=== PATIENT | female | born 1960 | race Caucasian/White ===

== ENCOUNTER 2021-06-28 06:27 | Day surgery (SDC) | payer OTHER, SELFPAY ==
[2021-06-21 12:50] VITALS: BMI 36.4
--- NOTE | 2021-06-28 06:53 | HO.ANESPROP2 ---
[facility] Past Medical History Medical History (Updated 06/21/21 @ 12:43 by Blanka Gavin RN) Elevated cholesterol HTN (hypertension) Family History Family history of problems with anesthesia: No Surgical History Surgical History (Updated 06/21/21 @ 12:43 by Blanka Gavin RN) H/O colonoscopy History of endometrial ablation Hx of dilation and curettage History of Problems with Anesthesia: No Social History Social History Patient Tobacco Use Status: Never used Tobacco Advance Directives Information Provided: Yes (informational brochure mailed) Advance Directives on File: No Meds Allergies Allergy/AdvReac Type Severity Reaction Status Date / Time erythromycin base Allergy Intermediate RASH Verified 06/28/21 06:15 [ERYTHROMYCIN BASE] Home Medications Medication Instructions Recorded Confirmed Last Taken Type atorvastatin 10 mg tablet 10 mg PO BEDTIME 06/21/21 06/21/21 Unknown History cetirizine 10 mg tablet (Zyrtec) 10 mg PO DAILY PRN 06/21/21 06/21/21 Unknown History cholecalciferol (vitamin D3) 50 50 mcg PO DAILY 06/21/21 06/21/21 Unknown History mcg (2,000 unit) capsule (Vitamin D3) multivitamin 1 tab PO DAILY 06/21/21 06/21/21 Unknown History propranolol 60 mg tablet 60 mg PO BID 06/21/21 06/21/21 Unknown History Exam Exam Date and Time: June 28, 2021 0653 Height,Weight and Vital Signs: Height 5 ft 1.5 in Weight 88.904 kg Airway Mallampati Class: I TM Dist: >3cm Neck ROM: Full Heart: rrr Lungs: cta Assessment and Plan Assessment Anesthesia Assessment: Anesthesia Plan Discussed and Chart Reviewed Final Anesthetic Review Family History of Problems with Anesthesia: No History of Problems with Anesthesia: No NPO: Yes (Sip water with med) ASA Class: II Final Preanesthetic Review: No Changes in Pt Med Stat, Meds/Allgs Chart Reviewed and Consent Obtained/Reviewed Patient Risk: Intermediate Procedure Risk: Intermediate Anesthetic Plan Anesthetic Plan: MAC: Disposition: Standard PACU
[2021-06-28 06:58] VITALS: BP 140/68; PULSE 60; RESP 18; TEMP 36.6; O2SAT 99
[2021-06-28] MEDS: Lactated Ringers 1,000 ML 50 ML IVCONT (07:07)
[2021-06-28 08:31] VITALS: BP 105/59; PULSE 69; RESP 16; TEMP 36.5; O2SAT 98
[2021-06-28 08:33] VITALS: BP 105/78; PULSE 85; RESP 20; TEMP 37.2; O2SAT 98
--- NOTE | 2021-06-28 08:33 | PM.OP ---
Brief Operative Note Date of Service: 06/28/21 Pre-op diagnosis: Screening Post-op diagnosis: other (Rectal polyp) Procedure: Colonoscopy to the cecum and TI with cold snare polypectomy Surgeon: Zack Laird Anesthesia: MAC Was an Senior Hr Manager used for this Procedure?: No Estimated blood loss (mL): 3.0 Pathology: other (A. Rectal polyp) Condition: stable Disposition: PACU
[2021-06-28 08:45] VITALS: BP 112/66; PULSE 67; RESP 18; TEMP 36.2; O2SAT 98
[2021-06-28 09:01] VITALS: BP 112/66; PULSE 67; RESP 18; TEMP 36.2; O2SAT 98
--- NOTE | 2021-06-28 09:45 | OP_ITS ---
SURGEON: Zack Laird MD INDICATIONS: The patient presents for evaluation of colorectal cancer screening and family history of colon cancer. Full consent has been obtained from her for this, including risks of bleeding and perforation. PREOPERATIVE DIAGNOSIS: POSTOPERATIVE DIAGNOSIS: PROCEDURE PERFORMED: Colonoscopy to cecum and terminal ileum with cold snare polypectomy. ESTIMATED BLOOD LOSS: COMPLICATIONS: ANESTHESIA: Monitored anesthesia care. ASSISTANTS: SPECIMENS: PREOPERATIVE DIAGNOSES: Colorectal cancer screening and family history of colon cancer. POSTOPERATIVE DIAGNOSES: Colorectal cancer screening and family history of colon cancer, small colon polyp, mild diverticulosis, and small internal hemorrhoids. DESCRIPTION OF PROCEDURE: The patient was placed in the left lateral decubitus position. The digital rectal exam revealed no abnormalities. The Olympus video pediatric colonoscope was entered into the rectum and advanced to the cecum with assistance of abdominal wall pressure. Once in the cecum, I did identify normal-appearing cecal pouch with appendiceal orifice and a normal-appearing ileocecal valve. The terminal ileum was cannulated and appeared normal. The scope was withdrawn back in the colon. The entire cecum and ileocecal valve appeared normal. The scope was slowly withdrawn assessing all mucosal surfaces carefully. Preparation was excellent. In the proximal rectum, was a flat approximately 5 or 6 mm probable hyperplastic polyp, which was snared and removed with a cold snare. A small piece was recovered by suction. The polypectomy site appeared clean, without any sign of residual polyp nor significant bleeding. I did not visualize any other polyps, colitis, nor angiodysplasia. There was a mild amount of sigmoid diverticulosis. In the rectum, scope was retroflexed visualizing internal hemorrhoids, but no other pathology. The rectal mucosa appeared normal. The scope was straightened out and withdrawn from the patient. She tolerated the procedure well and was returned to recovery area in stable condition. IMPRESSION: 1. Small rectal polyp, status post cold snare polypectomy. 2. Mild sigmoid diverticulosis. 3. Small internal hemorrhoids. PLAN: The results of the pathology will be checked. I would recommend a repeat colonoscopy in 5 years for further screening given the family history of colon cancer in her mother having a colon cancer in her 40s. She will otherwise see me on a p.r.n. basis. MD AURELIA Gilbert/LORRAINE / [id number]
== END 2021-06-28 09:10 | disposition home or self-care (01) ==
PROVIDERS: PCP Internal Medicine; Visit Provider Internal Medicine
PROC: 0DJD8ZZ Inspection of Lower Intestinal Tract, Via Natural or Artificial Opening Endoscopic (ICD-10-PCS; CPT 45378; principal; 2021-06-28 07:30)
DX: Z12.11 Encounter for screening for malignant neoplasm of colon (principal); Z80.0 Family history of malignant neoplasm of digestive organs; K62.1 Rectal polyp; K57.30 Diverticulosis of large intestine without perforation or abscess without bleeding; K64.8 Other hemorrhoids; I10 Essential (primary) hypertension; E78.5 Hyperlipidemia, unspecified; Z79.899 Other long term (current) drug therapy; Z88.1 Allergy status to other antibiotic agents
CPT/HCPCS: 45385; 88305; J2250